=== PATIENT | male | born 1945 | race Two or more races ===

== ENCOUNTER 2018-07-12 15:02 | Emergency (ER) | payer OTHER ==
[~2018-07-12] VITALS: Ht 172.7 cm; Wt 114.3 kg
[2018-07-12] MEDS ORDERED: COZAAR100 MG (15:49)
== END 2018-07-12 19:31 | disposition home or self-care (01) ==
LOC: ER 15:02
DX: R07.89 Other chest pain (principal)

== ENCOUNTER 2018-12-25 15:48 | Emergency (ER) | payer OTHER ==
[~2018-12-25] VITALS: Ht 172.7 cm; Wt 116.1 kg
[~2018-12-25 15:48] MED LIST: COZAAR100 MG
== END 2018-12-25 18:12 | disposition home or self-care (01) ==
LOC: ER 15:48
DX: S61.232A Puncture wound without foreign body of right middle finger without damage to nail, initial encounter (principal); W25.XXXA Contact with sharp glass, initial encounter; Y93.89 Activity, other specified; Y92.89 Other specified places as the place of occurrence of the external cause; Y99.8 Other external cause status

== ENCOUNTER 2019-02-27 11:11 | Emergency (ER) | payer OTHER ==
[~2019-02-27] VITALS: Ht 172.7 cm; Wt 113.4 kg
[2019-02-27] MEDS ORDERED: PRAVASTATIN SOD40 MG PO (11:43)
[2019-02-27] MEDS ORDERED: IRBESARTAN150 MG PO (11:44)
[2019-02-27] MEDS ORDERED: FENOFIBRATE150 MG (11:44)
[2019-02-27] MEDS ORDERED: BACTRIM DS TAB1 EACH PO (12:08)
[2019-02-27] MEDS ORDERED: CLOTRIMAZOLE-BE15 G1 TOP (12:08)
== END 2019-02-27 12:17 | disposition home or self-care (01) ==
LOC: ER 11:11
DX: R21 Rash and other nonspecific skin eruption (principal)